=== PATIENT | female | born 1995 | race Caucasian/White ===

== ENCOUNTER 2019-02-23 10:11 | Emergency (ER) | payer OTHER ==
[2019-02-23 10:18] VITALS: BP 123/75; PULSE 65; TEMP 97.7; BMI 36.7
--- NOTE | 2019-02-23 11:10 | PDOC ---
History of Present Illness - General Chief Complaint: Injury Stated Complaint: FALL Time Seen by Provider: 02/23/19 11:03 History Source: Patient Exam Limitations: No Limitations - History of Present Illness Initial Comments: 02/23/19 11:06 Patient states slipped on wet stairs 2 days ago landing on her left buttock and has a large hematoma/bruise. Was concerned about any other injury and came for evaluation. Denies numbness or tingling to feet, denies any true bone tenderness, denies any problems with bowel or bladder. Occurred: reports: yesterday Severity: reports: mild, moderate Pain Location: reports: back, lower extremity, pelvis Method of Injury: Yes: unknown Modifying Factors: improves with: None, cold therapy Loss of Consciousness: no loss of consciousness Associated Symptoms (Fall): denies symptoms Past History - Travel Traveled outside of the country in the last 30 days: No Close contact w/someone who was outside of country & ill: No - Past Medical History Allergies/Adverse Reactions: Allergies Allergy/AdvReac Type Severity Reaction Status Date / Time No Known Allergies Allergy Verified 02/23/19 10:18 Home Medications: Ambulatory Orders Naproxen [Naprosyn -] 500 mg PO BID #30 tablet 02/23/19 COPD: No - Psycho Social/Smoking Cessation Hx Smoking History: Never smoked Hx Alcohol Use: No Drug/Substance Use Hx: No Review of Systems - Review of Systems Able to Perform ROS?: Yes Is the patient limited Wolof proficient: Yes Constitutional: Yes: Symptoms Reported, See HPI. No: Fever, Malaise HEENTM: No: Symptoms Reported Musculoskeletal: Yes: Symptoms Reported, See HPI, Muscle Pain Integumentary: Yes: Symptoms Reported, See HPI, Bruising Neurological: No: Symptoms reported All Other Systems: Reviewed and Negative *Physical Exam - Vital Signs Last Vital Signs Temp Pulse Resp BP Pulse Ox 97.7 F 65 16 123/75 99 02/23/19 10:16 02/23/19 10:16 02/23/19 10:16 02/23/19 10:16 02/23/19 10:16 - Physical Exam General Appearance: Yes: Appropriately Dressed, Apparent Distress HEENT: positive: EOMI, ADILENE, Normal ENT Inspection, TMs Normal, Pharynx Normal Neck: positive: Supple. negative: Tender Respiratory/Chest: positive: Chest Tender, Lungs Clear Gastrointestinal/Abdominal: positive: Soft. negative: Tender Integumentary: positive: Dry, Warm, Swelling, Ecchymosis, Bruising (to left buttock - ~ 30% of gluteus with mild hematoma. 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 Will treat with NSAIDs and rest Discharge - Discharge Information Problems reviewed: Yes Clinical Impression/Diagnosis: Contusion Condition: Stable Disposition: HOME - Admission No - Additional Discharge Information Prescriptions: Naproxen [Naprosyn -] 500 mg PO BID #30 tablet - Follow up/Referral Referrals: ON STAFF,NOT [Primary Care Provider] - - Patient Discharge Instructions Patient Printed Discharge Instructions: DI for Contusion Additional Instructions: Rest, ice to area on and off for 15 minutes 4-6 times a day Avoid heavy lifting or exercise until pain and swelling is resolved or until further directed Keep area highly elevated to reduce swelling Followup with orthopedist in one to 2 days if not improving, if significantly improved may wait one week for followup with private physician May use ibuprofen every 6 hours as needed for pain - Post Discharge Activity Work/Back to School Note: Back to Work
== END 2019-02-23 11:15 | disposition home or self-care (01) ==
LOC: JER 10:11 → JERFT 10:11
DX: S30.0XXA Contusion of lower back and pelvis, initial encounter (principal); W10.9XXA Fall (on) (from) unspecified stairs and steps, initial encounter; Y93.89 Activity, other specified; Y92.89 Other specified places as the place of occurrence of the external cause
CPT/HCPCS: 99281-25